=== PATIENT | male | born 1970 | race Caucasian/White ===

== ENCOUNTER 2023-01-16 17:44 | Inpatient (IN) | payer OTHER ==
[~2023-01-16] VITALS: Ht 172.7 cm; Wt 106.5 kg
[2023-01-16] MEDS ORDERED: CARVEDILOL6.25 MG PO (20:41)
[2023-01-16] MEDS ORDERED: BACLOFEN10 M4 PO (20:42)
[2023-01-16] MEDS ORDERED: K-Dur20 MEQ PO (20:43)
[2023-01-16] MEDS ORDERED: CHLO25B PO (20:43)
[2023-01-16] MEDS ORDERED: TELMISARTAN80 MG PO (20:44)
[2023-01-16] MEDS ORDERED: METFORMIN HCL500 M3 PO (21:05)
[2023-01-16] MEDS ORDERED: SPIRONOLACTONE25 MG PO (21:05)
[2023-01-16] MEDS ORDERED: OZEMPIC0.25 MG/02 SC (21:07)
[2023-01-16] MEDS ORDERED: OMEP20ER PO (21:09)
[2023-01-16 22:59] LABS: Anti-Xa UFH, PHA Monitoring 0.97 IU/mL; International Normalized Ratio 1.01; Prothrombin Time Results 10.6 Sec (9.7-11.5)
[2023-01-16 23:40] VITALS: BP 141/100
--- NOTE | 2023-01-16 23:44 | NUR ---
ADMIT NOTE. PT WAS A SEMI-DIRECT ADMIT FROM [place]. HE DID STOP IN THE ED AT [facility] TO RULE OUT STEMI BEFORE COMING TO THE FLOOR. PT AND FAMILY WERE ORIENTED TO ROOM AND CALL LIGHT SYSTEM. PLAN OF CARE DISCUSSED. UNFORTUNATELY, THE BI MANAGER HAD MALFUNCTION AND VITALS ARE UNABLE TO BE ENTERED INTO CHART FROM ADMIT AT [phone]. VITALS STABLE EXCEPT MILD HYPERTENSION. PT IS ABLE TO MAKE NEEDS KNOWN, CALL LIGHT IS WITHIN REACH. HEP GTT INFUSING. NPO AT MIDNIGHT.
[2023-01-17 03:39] LABS: BASOPHILS ABSOLUTE AUTO 0.05 K/mm3 (0.00-0.23); BASOPHILS PERCENT AUTO 0 % (0-2); EOSINOPHILS ABSOLUTE AUTO 0.11 K/mm3 (0.00-0.68); EOSINOPHILS PERCENT AUTO 1 % (0-6); Hematocrit 38.6 % (37.0-53.0); Hemoglobin 13.5 g/dL (13.5-17.5); IMMATURE GRAN ABSOLUTE AUTO 0.04 K/mm3 (0.00-0.10); IMMATURE GRAN PERCENT AUTO 0 % (0-1); LYMPHOCYTES ABSOLUTE AUTO 3.97 K/mm3 (0.84-5.20); LYMPHOCYTES PERCENT AUTO 30 % (21-46); MONOCYTES PERCENT AUTO 8 % (4-13); Mean Corpuscular HGB 31.8 pg (26.0-34.0); Mean Corpuscular Volume 91 fL (80-100); Mean Platelet Volume 10.4 fL (9.1-12.4); NEUTROPHILS ABSOLUTE AUTO 8.17 K/mm3 (1.96-9.15); NEUTROPHILS PERCENT AUTO 61 % (41-73); Platelet Count 265 K/mm3 (150-400); RDW Coefficient Variation 12.6 % (11.7-14.2); RDW Standard Deviation 41.5 fL (35.1-46.3); Red Blood Cell Count 4.25 M/mm3 (4.30-5.90); White Blood Cell Count 13.34 K/mm3 (4.00-11.30)
[2023-01-17 03:43] VITALS: BP 121/93
[2023-01-17 04:04] LABS: Albumin, Blood 3.3 g/dL (3.4-5.0); Albumin/Globulin Ratio 0.9 (0.8-1.8); Bilirubin, Total 0.6 mg/dL (0.1-1.0); Bun/Creatinine Ratio 21.5 (12.0-20.0); Calcium, Blood 8.8 mg/dL (8.5-10.1); Creatinine, Blood 0.74 mg/dL (0.60-1.20); Globulin, Blood 3.7 g/dL (2.2-4.0); Potassium, Blood 3.6 mmol/L (3.5-5.5)
[2023-01-17 06:54] VITALS: BP 130/94
--- NOTE | 2023-01-17 07:30 | NUR ---
Received in room reort from [facility] RN. Patient is awake in bed, he is alert and oriented and is able to communicate his needs. H ei son RA and and sats 96%. He is independent with positioning and is SBA with BRP. He has 18ga PG to RFA and is infusing Heparin at 14 units/kg/min. He has denied any chest pain this am and is in SR70's. He doies c/o neck pain that was being treated by chiropractor just before admission. Dr Montez has been and consented to Angio, ECHO, and Dr Pascual. Patient up to Bathroom before ECHO, very stable with ambulation.
--- NOTE | 2023-01-17 11:17 | NUR ---
Patient went to pathology laboratory aides teacher around 0845 and back at 1000. He has right TR band and site was WNL and bruising or hematoma. 9cc of air. He has two stents place and will go back to pathology laboratory aides teacher 01/18 for anther stent r/t 80% occlusion.patient remains independent in room . Heparin remains off since pathology laboratory aides teacher. Dr Rice gave pictures and spoke to daughter and patient. Medicated for neck pain per APR.
[2023-01-17 12:44] VITALS: BP 116/91
--- NOTE | 2023-01-17 15:29 | NUR ---
He continues to rest with daughter in room. Air all out of TR band and site WNL's, no bruising or Hematoma. Patient remains independnet in roomand calls appropriatly. H eremains on RA and sats >900% and denies any chest pain ,just chronic neck pain. He denies any current needs other than up to bathroom.
[2023-01-17 18:25] VITALS: BP 107/83
--- NOTE | 2023-01-17 18:26 | NUR ---
No significant changes with patient. He has denied any chest pain since back from qc lab technician. All air is out of TR band and has been removed and bandaid placed with wrist support. He calls appropriate to get up and is independent in room. He tolerated dinner and is NPO after midnight for 2nd part of cath.
[2023-01-17 20:32] VITALS: BP 111/90
[2023-01-17 23:57] VITALS: BP 97/75
[2023-01-18] VITALS (11 sets, daily range): BP systolic 91–127; BP diastolic 64–95
[2023-01-18 03:44] LABS: BASOPHILS ABSOLUTE AUTO 0.06 K/mm3 (0.00-0.23); BASOPHILS PERCENT AUTO 1 % (0-2); EOSINOPHILS ABSOLUTE AUTO 0.21 K/mm3 (0.00-0.68); EOSINOPHILS PERCENT AUTO 2 % (0-6); Hematocrit 37.4 % (37.0-53.0); Hemoglobin 12.8 g/dL (13.5-17.5); IMMATURE GRAN ABSOLUTE AUTO 0.04 K/mm3 (0.00-0.10); IMMATURE GRAN PERCENT AUTO 0 % (0-1); LYMPHOCYTES ABSOLUTE AUTO 3.96 K/mm3 (0.84-5.20); LYMPHOCYTES PERCENT AUTO 36 % (21-46); MONOCYTES ABSOLUTE AUTO 0.92 K/mm3 (0.16-1.47); MONOCYTES PERCENT AUTO 8 % (4-13); Mean Corpuscular HGB 31.2 pg (26.0-34.0); Mean Corpuscular HGB Conc 34.2 g/dL (31.5-36.5); Mean Corpuscular Volume 91 fL (80-100); Mean Platelet Volume 10.5 fL (9.1-12.4); NEUTROPHILS ABSOLUTE AUTO 5.77 K/mm3 (1.96-9.15); NEUTROPHILS PERCENT AUTO 53 % (41-73); Platelet Count 226 K/mm3 (150-400); RDW Coefficient Variation 12.6 % (11.7-14.2); White Blood Cell Count 10.96 K/mm3 (4.00-11.30)
[2023-01-18 04:00] LABS: Anion Gap 5 mmol/L (6-16); Blood Urea Nitrogen 19 mg/dL (8-24); Bun/Creatinine Ratio 24.4 (12.0-20.0); CO2, Blood 29 mmol/L (21-32); Calcium, Blood 8.8 mg/dL (8.5-10.1); Chloride, Blood 102 mmol/L (98-108); Creatinine, Blood 0.78 mg/dL (0.60-1.20); Glomerular Filtration Rate 107 (60-); Glucose, Blood 124 mg/dL (70-99); Magnesium, Blood 1.9 mg/dL (1.6-2.4); Potassium, Blood 3.6 mmol/L (3.5-5.5); Sodium, Blood 136 mmol/L (136-145)
--- NOTE | 2023-01-18 04:19 | NUR ---
SHIFT SUMMARY. PT AOX4, PLEASANT, COOPERATIVE WITH CARE. HAS BEEN DOING WELL THIS SHIFT. PAIN ADEQUATELY MANAGED VIA EMAR. BP HAS BEEN SOMEWHAT SOFT BUT MAINTAINING MAP>65. INDEPENDENT WITHIN ROOM. RWR ANGIO SITE REMAINS WNL, BRACE IN PLACE. REINFORCED POST OP EDUCATION. PT NPO SINCE MIDNIGHT PENDING FOLLOW UP STENTING TODAY. SATTING WELL ON ROOM AIR. TELE IN PLACE WITH NO EVENTS THUS FAR, NSR. BED LOCKED IN LOWEST POSITION. CALL LIGHT LEFT WITHIN REACH.
--- NOTE | 2023-01-18 17:42 | NUR ---
ASSUMED CARE OF PT AT 0700 AFTER BEDSIDE SHIFT REPORT WITH NOC SHIFT RN. PT REMAINED NPO UNTIL TAKEN TO GASOLINE TRUCK OPERATOR FOR PROCEDURE. PER REPORT, LAD STENT PLACED WITHOUT COMPLICATIONS. R WRIST ANGIO SITE WITH TR BAND IN PLACE, SUCESSFULY RECOVERED PER MD ORDERS. BRACE TO R WRIST REMAINS IN PLACE, PT EDUCATION GIVEN TO KEEP R WRIST IMOBILIZED AND TO NOTIFY RN IMMEDIATELY OF ANY BLEEDING, SWELLING OR SUDDEN PAIN AT SITE. PT VERBALIZES UNDERSTANDING. VITAL SIGNS HAVE REMAINED STABLE T/O THE SHIFT. TYLENOL/BACLOFEN FOR PAIN PER MD ORDERS. PLAN FOR DC TOMORROW BARRING ACUTE EVENTS OVERNIGHT. PT IS ANXIOUS TO BE DISCHARGED HOME. PT IS ABLE TO USE CALL LIGHT FOR NEEDS, AMBULATES INDEPENDENTLY IN ROOM WITHOUT DIFFICULTY. WILL CONITNUE TO MONITOR/TREAT AND GIVE REPORT TO ONCOMING SHIFT RN.
[2023-01-19 01:04] VITALS: BP 106/58
[2023-01-19 04:07] VITALS: BP 121/94
--- NOTE | 2023-01-19 04:52 | NUR ---
SHIFT SUMMARY. PT HAS BEEN DOING WELL THIS SHIFT. AOX4, PLEASANT, COOPERATIVE WITH CARE. INDEPENDENT WITHIN ROOM. SATTING WELL ON ROOM AIR. TR BAND REMOVED EARLY IN SHIFT. TEGADERM APPLIED WHICH HAS BEEN C/D/I WITH NO CHANGES THROUGHOUT SHIFT THUS FAR. WRIST BACKBOARD IN PLACE SINCE APPLICATION OF TEGADERM. POST OP CARE AND INSTRUCTIONS REINFORCED. PT HAS BEEN COMFORTABLE THROUGHOUT SHIFT AND ABLE TO SLEEP WELL THROUGHOUT MOST OF MORNING. VITALS STABLE. TELE ON WITH NO EVENTS NOTED THUS FAR THIS SHIFT. CALLS APPROPRIATELY FOR ASSISTANCE. CONTINUES TO BE FREE OF ANY MANIFESTATIONS OF WITHDRAWL. BED LOCKED IN LOWEST POSITION. CALL LIGHT LEFT WITHIN REACH. CONTINUING TO MONITOR.
[2023-01-19 09:07] VITALS: BP 136/87
[2023-01-19] MEDS ORDERED: ATOR80 PO (11:09)
[2023-01-19] MEDS ORDERED: ASPI81CH PO (11:09)
[2023-01-19] MEDS ORDERED: CLOP75 PO (11:09)
[2023-01-19] MEDS ORDERED: FAMO20 PO (11:10)
[2023-01-19] MEDS ORDERED: METO50ER PO (11:10)
[2023-01-19] MEDS ORDERED: MULVITA PO (11:10)
[2023-01-19 11:40] VITALS: BP 126/93
--- NOTE | 2023-01-19 12:00 | NUR ---
DISCHARGE NOTE: PT A&OX4, AMBULATING AROUND UNIT INDEPENDENTLY WITH STEADY GAIT. VSS. R RADIAL SITE WNL. PT IS ANXIOUS TO GO HOME. DISCHARGE ORDERS FROM DR NOONAN, PRESCRIPTIONS FAXED TO [facility] PER PT REQUEST. THIS RN CONTACTED DR SIMONS, HE APPROVES OF PT'S DISCHARGE TODAY. IV REMOVED WNL, TELE REMOVED. DISCHARGE TEACHING COMPLETED WITH PT AND HIS DTR AT BEDSIDE, INCLUDING MEDICATION LIST, DISCHARGE INSTRUCTIONS AND EDUCATION MATERIAL. PT HAS NO QUESTIONS OR CONCERNS AT THIS TIME. NO FURTHER DISCARGE NEEDS IDENTIFIED. PT WAS DISCHARGED @ 1200, AMBULATORY PER HIS REQUEST, WITH ALL PERSONAL BELONGINGS.
== END 2023-01-19 12:00 | disposition home or self-care (01) | DRG 247 ==
LOC: PCU
PROVIDERS: Family Medicine; ADMIT Internal Medicine
PROC: 027035Z Dilation of Coronary Artery, One Artery with Two Drug-eluting Intraluminal Devices, Percutaneous Approach (ICD-10-PCS; principal; 2023-01-17)
PROC: B2111ZZ Fluoroscopy of Multiple Coronary Arteries using Low Osmolar Contrast (ICD-10-PCS; 2023-01-17)
PROC: B240ZZ3 Ultrasonography of Single Coronary Artery, Intravascular (ICD-10-PCS; 2023-01-17)
PROC: 027034Z Dilation of Coronary Artery, One Artery with Drug-eluting Intraluminal Device, Percutaneous Approach (ICD-10-PCS; 2023-01-18)
PROC: 4A023N7 Measurement of Cardiac Sampling and Pressure, Left Heart, Percutaneous Approach (ICD-10-PCS; 2023-01-18)
PROC: B2111ZZ Fluoroscopy of Multiple Coronary Arteries using Low Osmolar Contrast (ICD-10-PCS; 2023-01-18)
PROC: B241ZZ3 Ultrasonography of Multiple Coronary Arteries, Intravascular (ICD-10-PCS; 2023-01-18)
DX: I21.4 Non-ST elevation (NSTEMI) myocardial infarction (principal); I25.119 Atherosclerotic heart disease of native coronary artery with unspecified angina pectoris; E11.9 Type 2 diabetes mellitus without complications; I10 Essential (primary) hypertension; G89.29 Other chronic pain; M54.9 Dorsalgia, unspecified; G47.33 Obstructive sleep apnea (adult) (pediatric); F10.90 Alcohol use, unspecified, uncomplicated; I95.9 Hypotension, unspecified; Z79.85 Long-term (current) use of injectable non-insulin antidiabetic drugs; Z87.891 Personal history of nicotine dependence; Z79.82 Long term (current) use of aspirin; Z68.35 Body mass index [BMI] 35.0-35.9, adult
CPT/HCPCS: 36415; 76937; 80053; 80069; 82947; 83735; 84484; 85025; 85347; 85520; 85610; 85730; 92978; 93306; 93454; 99152; 99153; A9270; C1725; C1753; C1769; C1874; C1887; C1894; C9600; J1644; J1650; J2250; J2270; J3010; J7030; J7050; Q9967

== ENCOUNTER 2023-01-16 19:12 | Emergency (ER) | payer OTHER ==
[~2023-01-16] VITALS: Ht 172.7 cm; Wt 108.0 kg
[2023-01-16 19:20] VITALS: BP 160/108
[2023-01-16] MEDS ORDERED: CARVEDILOL6.25 MG PO (20:41)
[2023-01-16] MEDS ORDERED: BACLOFEN10 M4 PO (20:42)
[2023-01-16] MEDS ORDERED: K-Dur20 MEQ PO (20:43)
[2023-01-16] MEDS ORDERED: CHLO25B PO (20:43)
[2023-01-16] MEDS ORDERED: TELMISARTAN80 MG PO (20:44)
[2023-01-16] MEDS ORDERED: METFORMIN HCL500 M3 PO (21:05)
[2023-01-16] MEDS ORDERED: SPIRONOLACTONE25 MG PO (21:05)
[2023-01-16] MEDS ORDERED: OZEMPIC0.25 MG/02 SC (21:07)
[2023-01-16] MEDS ORDERED: OMEP20ER PO (21:09)
== END 2023-01-16 20:00 | disposition other institution (70) ==
LOC: ER 19:12
DX: I21.4 Non-ST elevation (NSTEMI) myocardial infarction (principal); Z79.84 Long term (current) use of oral hypoglycemic drugs; Z79.899 Other long term (current) drug therapy
CPT/HCPCS: 82947; 93005; 93010; 99285-25